=== PATIENT | female | born 1980 | race Caucasian/White ===

== ENCOUNTER → 2023-10-05 13:48 | Outpatient (REF) | payer OTHER, SELFPAY | LOC: RAD 13:48 | PROVIDERS: ATTENDING PHYSICIAN Family Medicine | DX: M54.12 Radiculopathy, cervical region (principal); M79.601 Pain in right arm | CPT/HCPCS: 72052; 73030 ==

== ENCOUNTER → 2024-07-24 12:37 | Outpatient (REF) | payer OTHER, SELFPAY | LOC: RAD 12:37 | PROVIDERS: ATTENDING PHYSICIAN Physician Assistant; PRIMARYCARE PHYSICIAN Family Medicine | DX: M50.30 Other cervical disc degeneration, unspecified cervical region (principal); M25.521 Pain in right elbow | CPT/HCPCS: 72052; 73080 ==

== ENCOUNTER → 2024-08-13 19:38 | Outpatient (REF) | payer OTHER, SELFPAY | LOC: MRI 3T 19:38 | PROVIDERS: ATTENDING PHYSICIAN Physician Assistant; FAMILY PHYSICIAN Family Medicine | DX: M50.30 Other cervical disc degeneration, unspecified cervical region (principal); R29.898 Other symptoms and signs involving the musculoskeletal system | CPT/HCPCS: 72141 ==